=== PATIENT | male | born 1950 | race Hispanic/Latino ===

== ENCOUNTER 2024-03-28 05:52 | Emergency (ER) | payer MEDICARE ==
[~2024-03-28] VITALS: Ht 175.3 cm; Wt 78.9 kg
[2024-03-28 06:44] LABS: BASOPHILS % 0.2 % (0.0-1.0); EOSINOPHILS # (AUTO) 0.1 (0.0-0.4); EOSINOPHILS % 1.3 % (0.0-6.0); HEMOGLOBIN 14.6 g/dL (14.0-18.0); LYMPHOCYTES # (AUTO) 1.5 (1.0-3.2); LYMPHOCYTES % 16.2 % (18.0-39.1); MEAN CORPUSCULAR HEMOGLOBIN 29.3 pg (28-32); MEAN CORPUSCULAR VOLUME 86.3 fL (81-99); MONOCYTES # (AUTO) 0.6 (0.2-0.8); MONOCYTES % 6.5 % (4.4-11.3); NEUTROPHILS # (AUTO) 7.1 (2.1-6.9); NEUTROPHILS % 75.5 % (38.7-80.0); PLATELET COUNT 192 x10e3/uL (140-360); RED BLOOD COUNT 4.98 x10e6/uL (4.3-5.7)
[2024-03-28 07:00] LABS: ANION GAP 12.8 mmol/L (8-16); CREATININE, SERUM 0.99 mg/dL (0.72-1.25); POTASSIUM 3.8 mmol/L (3.5-5.1)
[2024-03-28] MEDS ORDERED: IOPAMIDOL 370 MG/ML 100 ML INFUS..BTL INJ ONE (08:04)
[2024-03-28 13:31] VITALS: PULSE 87; RESP 16; TEMP 99.2; O2SAT 100
== END 2024-03-28 13:53 | disposition other institution (70) ==
LOC: ER 06:11
DX: L02.01 Cutaneous abscess of face (principal)
CPT/HCPCS: 36415; 70487; 80048; 85025; 99284; J2543; Q9967